=== PATIENT | male | born 1970 | race African-American/Black ===

== ENCOUNTER 2018-06-15 11:26 | Emergency (ER) | payer OTHER ==
[2018-06-15] MEDS ORDERED: ASPIRIN 81 MG TAB PO (12:32)
[2018-06-15] MEDS ORDERED: NITROGLYCERIN 2% 1 GM OINT PKT TD (12:32)
[2018-06-15] MEDS ORDERED: NITROGLYCERIN (SL) 0.4 MG TAB SL (13:00)
== END 2018-06-15 13:04 | disposition left against medical advice (07) ==
LOC: E/R 11:26
DX: R07.9 Chest pain, unspecified (principal)
CPT/HCPCS: 93005; 99283-25

== ENCOUNTER 2018-06-21 03:09 | Emergency (ER) | payer OTHER ==
[2018-06-21] MEDS: ASPIRIN 81 MG TAB PO (05:07)
[2018-06-21 05:10] LABS: ADD MAN DIFF? NO
[2018-06-21 05:13] LABS: BASOPHILS % 0.4 % (0.0-2.0); EOSINOPHILS # 0.1 10^3/ul (0.0-0.5); EOSINOPHILS % 1.1 % (0.0-7.0); HEMATOCRIT 43.2 % (42.0-52.0); HEMOGLOBIN 14.5 g/dl (14.0-18.0); LYMPHOCYTES % 37.6 % (15.0-51.0); MEAN CORPUSCULAR HEMOGLOBIN 30.3 pg (29.0-33.0); MEAN CORPUSCULAR HGB CONC 33.6 g/dl (32.0-37.0); MEAN CORPUSCULAR VOLUME 90.2 fl (82.0-101.0); MONOCYTE # 0.4 10^3/ul (0.3-0.9); MONOCYTES % 6.7 % (0.0-11.0); NEUTROPHIL # 2.9 10^3/ul (1.6-7.5); NEUTROPHILS % 53.6 % (39.0-77.0); PLATELET COUNT 240 10^3/UL (140-415); RED BLOOD COUNT 4.79 10^6/ul (4.70-6.10)
[2018-06-21 05:13] LABS: WHITE BLOOD COUNT 5.4 10^3/ul (4.8-10.8)
[2018-06-21 05:32] LABS: ANION GAP 10 (5-13); BLOOD UREA NITROGEN 9 mg/dl (7-20); CALCIUM 9.6 mg/dl (8.4-10.2); CARBON DIOXIDE 27 mmol/L (21-31); CHLORIDE 104 mmol/L (97-110); CREATININE 0.79 mg/dl (0.61-1.24); Estimated GFR > 60 mL/min (>60); GLUCOSE 92 mg/dl (70-220); POTASSIUM 5.1 mmol/L (3.5-5.1); SODIUM 141 mmol/L (135-144)
[2018-06-21 05:44] LABS: TROPONIN-I 0.018 ng/ml (0.000-0.120)
[2018-06-21 06:34] LABS: INR 0.88; PT RATIO 0.9
[2018-06-21 06:35] LABS: PARTIAL THROMBOPLASTIN TIME 28.3 Sec (23.0-35.0)
[2018-06-21 06:37] LABS: D-DIMER 306.73 ng/ml (<460)
[2018-06-21] MEDS: SOD CHLORIDE 0.9% 1,000 ML IV (07:29)
[2018-06-21] MEDS: KETOROLAC 15 MG INJ IV (07:29)
[2018-06-21 08:42] LABS: TROPONIN-I < 0.012 ng/ml (0.000-0.120)
== END 2018-06-21 09:19 | disposition home or self-care (01) ==
LOC: E/R 03:09
DX: F43.20 Adjustment disorder, unspecified (principal); R07.89 Other chest pain
CPT/HCPCS: 36415; 71045; 80048; 84484; 85025; 85378; 85610; 85730; 93005; 96374; 99285-25